=== PATIENT | female | born 1990 | race American Indian/Alaskan Native ===

== ENCOUNTER 2018-02-05 15:40 | Outpatient (CLI) | payer BC ==
[2018-02-05 16:03] VITALS: BP 128/73
== END 2018-02-05 16:37 | disposition home or self-care (01) ==
LOC: TRG 15:40
PROVIDERS: ATTEND Obstetrics & Gynecology
DX: O47.02 False labor before 37 completed weeks of gestation, second trimester (principal); O99.332 Smoking (tobacco) complicating pregnancy, second trimester; Z3A.26 26 weeks gestation of pregnancy
CPT/HCPCS: 59025